=== PATIENT | male | born 1980 | race Caucasian/White ===

== ENCOUNTER 2016-08-14 13:27 | Emergency (ER) | payer OTHER ==
[~2016-08-14] VITALS: Ht 188 cm; Wt 103.0 kg
[2016-08-14 13:30] VITALS: BP 140/82
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
[2016-08-14] MEDS ORDERED: CYCLOBENZAPRINE5 M2 PO (18:38)
[2016-08-14] MEDS ORDERED: IBUPROFEN600 M1 PO (18:38)
== END 2016-08-14 18:44 ==
LOC: ERH 13:27
DX: S13.4XXA Sprain of ligaments of cervical spine, initial encounter (principal); V49.40XA Driver injured in collision with unspecified motor vehicles in traffic accident, initial encounter; Y92.9 Unspecified place or not applicable
CPT/HCPCS: 72050; 73030-RT